=== PATIENT | male | born 1970 | race African-American/Black ===

== ENCOUNTER 2019-06-30 08:49 | Emergency (ER) | payer OTHER ==
[~2019-06-30] VITALS: Ht 180.3 cm; Wt 80.7 kg
[~2019-06-30 08:49] MED LIST: ATEN50TA2 PO; NIFE60TE PO; OMEP40EC1 PO
[2019-06-30 08:54] VITALS: BP 157/86
--- NOTE | 2019-06-30 09:01 | NUR ---
PT AMBULATED TO BED 3
--- NOTE | 2019-06-30 09:01 | NUR ---
BIB . AAO X4 C/O NECK/THROAT PAIN 5/10 X 3DAYS. PT STATES IN 2012 HE HAD HALF OF A NODULE REMOVED FROM HIS THYROID AND HAS HAD OFF/ON PAIN SINCE THEN. DENIES FEVERS/ N/V/D. PT STATES HE FEELS OCCASIONAL SOB. O2 SAT RA 100%, PT SPEAKING IN FULL COMPLETE SENTENCES, NO LABORED BREATHING OR ACCESORY MUSCLE USE NOTED. DENIES RECENT INJURY/TRAUMA. PT STATES MILD DIFFICULTY SWALLOWING. PER PT, HE TOOK TYLENOL 500 MG TODAY AT 0700 WITH NO RELIEF. HOB UP. BED SIDE RAILS UP X1. ON LOW BED POSITION, LOCKED. ER TO EVALUATE PT.
--- NOTE | 2019-06-30 09:09 | NUR ---
DR ESTES AT BEDSIDE FOR PT EVALUATION
--- NOTE | 2019-06-30 09:17 | NUR ---
PT TAKEN TO RADIOLOGY VIA WHEEL CHAIR BY LAUNDRY HELPER
--- NOTE | 2019-06-30 09:28 | NUR ---
PT TAKEN BACK TO ROOM VIA WHEEL CHAIR BY REIMBURSEMENT ANALYST
[2019-06-30 09:55] VITALS: BP 130/75
--- NOTE | 2019-06-30 09:55 | NUR ---
Patient discharged with v/s stable. Written and verbal after care instructions given and explained. Patient alert, oriented and verbalized understanding of instructions. Ambulatory with steady gait. All questions addressed prior to discharge. ID band removed. Patient advised to follow up with PMD. Rx of AZITHROMYCIN 250 MG given. Patient educated on indication of medication including possible reaction and side effects. Opportunity to ask questions provided and answered.
== END 2019-06-30 09:55 | disposition home or self-care (01) ==
LOC: MED 08:49
DX: J03.90 Acute tonsillitis, unspecified (principal); I10 Essential (primary) hypertension; E11.9 Type 2 diabetes mellitus without complications; Z98.890 Other specified postprocedural states; Z79.899 Other long term (current) drug therapy
CPT/HCPCS: 72040; 99283

== ENCOUNTER 2019-09-05 20:10 | Emergency (ER) | payer OTHER ==
[~2019-09-05] VITALS: Ht 180.3 cm; Wt 79.4 kg
[~2019-09-05 20:10] MED LIST changes: -OMEP40EC1 PO; +OMEP40EC24 PO
[2019-09-05 20:17] VITALS: BP 155/92
--- NOTE | 2019-09-05 20:20 | NUR ---
PT AMBULATED TO LOBBY.
--- NOTE | 2019-09-05 20:39 | NUR ---
THROAT SWABS COLLECTED AND SENT TO LAB.
--- NOTE | 2019-09-05 20:56 | NUR ---
PT AMBULATED TO BED 9
--- NOTE | 2019-09-05 21:11 | NUR ---
48 Y/O MALE PRESENTS TO ED, C/O OF SORETHROAT. PT STATES SORE THROAT HAS BEEN INTERMITTENT SINCE 2013; WORSENED X2 DAYS. PT CURRENTLY ABLE TO TOLERATE FOOD AND LIQUID. NO SOB. C/O LEFT SIDE CHEST PAIN RADIATES TO LEFT LEG. PT STATES TAKING TRAMADOL FOR PAIN; LAST DOSE WAS AT 0700 TODAY. PT VSS. ERMD AWARE. WILL CONTINUE TO MONITOR.
--- NOTE | 2019-09-05 23:00 | NUR ---
EKG PERFORMED AT BEDIDE
[2019-09-05 23:23] VITALS: BP 139/88
--- NOTE | 2019-09-05 23:23 | NUR ---
PT DISCHARGED WITHOUT PAPERWORK AND INSTRUCTIONS. Addendum: 09/06/19 at 0218 by [email or web address] PT DISCHARGED WITHOUT PAPERWORK AND INSTRUCTIONS. PT DID NOT SIGN D/C PAPERWORK. PT WAS AT STABLE CONDITION.
== END 2019-09-05 23:23 | disposition home or self-care (01) ==
LOC: MED 20:10
DX: J02.9 Acute pharyngitis, unspecified (principal); E11.9 Type 2 diabetes mellitus without complications; I10 Essential (primary) hypertension; Z98.890 Other specified postprocedural states; Z79.899 Other long term (current) drug therapy
CPT/HCPCS: 87081; 93005; 99284